=== PATIENT | male | born 1965 | race American Indian/Alaskan Native ===

== ENCOUNTER 2016-12-23 09:50 | Emergency (ER) | payer SELFPAY ==
[2016-12-23 10:01] VITALS: BP 124/81
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
== END 2016-12-23 11:39 | disposition home or self-care (01) ==
LOC: ED 09:50
DX: H10.9 Unspecified conjunctivitis (principal); F17.200 Nicotine dependence, unspecified, uncomplicated
CPT/HCPCS: 99282